=== PATIENT | male | born 1950 | race Caucasian/White ===

== ENCOUNTER → 2017-05-24 | Outpatient (CLI) | payer MEDICARE ==
[2017-05-24 11:43] LABS: ALT 40 U/L (21-72); AST 25 U/L (17-59); Alkaline Phosphatase 57 U/L (38-126); Anion Gap 12 mmol/L; Blood Urea Nitrogen 22 mg/dL (9-20); Calcium 9.7 mg/dL (8.4-10.2); Carbon Dioxide 24 mmol/L (22-30); Chloride 107 mmol/L (98-107); Glucose 103 mg/dL (74-99); Non-African American GFR(MDRD) >60 (>60 ml/min/1.73 sqM); Potassium 3.9 mmol/L (3.5-5.1); Sodium 143 mmol/L (137-145); Total Bilirubin 0.5 mg/dL (0.2-1.3); Total Protein 7.1 g/dL (6.3-8.2)
[2017-05-24 12:13] LABS: Prostate Specific Antigen 1.85 ng/mL (0.00-4.00)
[2017-05-24 14:17] LABS: Hemoglobin A1C 6.1 % (4.2-6.1)
== END | disposition home or self-care (01) ==
LOC: LABWHC1 11:09
PROVIDERS: ATTEND Family Medicine
DX: E11.22 Type 2 diabetes mellitus with diabetic chronic kidney disease (principal); N18.9 Chronic kidney disease, unspecified
CPT/HCPCS: 36415; 80053; 83036; 84153

== ENCOUNTER → 2017-09-05 | Outpatient (CLI) | payer MEDICARE ==
[2017-09-05 13:59] LABS: CH 31.4; CHCM 32.8; HCT 43.2 % (39.0-53.0); HDW 2.48; HGB 14.2 gm/dL (13.0-17.5); MCH 31.7 pg (25.0-35.0); MCHC 32.9 g/dL (31.0-37.0); MCV 96.4 fL (80.0-100.0); Mean Platelet Volume 7.3; RBC 4.48 m/uL (4.30-5.90); WBC 6.4 k/uL (3.8-10.6)
[2017-09-05 14:18] LABS: ALT 39 U/L (21-72); AST 25 U/L (17-59); Alkaline Phosphatase 64 U/L (38-126); Anion Gap 10 mmol/L; Blood Urea Nitrogen 21 mg/dL (9-20); Calcium 9.8 mg/dL (8.4-10.2); Carbon Dioxide 28 mmol/L (22-30); Chloride 101 mmol/L (98-107); Cholesterol 185 mg/dL (<200); Glucose 120 mg/dL (74-99); HDL Cholesterol 63 mg/dL (40-60); Non-African American GFR(MDRD) >60 (>60 ml/min/1.73 sqM); Potassium 4.1 mmol/L (3.5-5.1); Sodium 139 mmol/L (137-145); Total Bilirubin 0.6 mg/dL (0.2-1.3); Total Protein 7.5 g/dL (6.3-8.2); Uric Acid 8.9 mg/dL (3.5-8.5)
[2017-09-05 14:48] LABS: Prostate Specific Antigen 2.36 ng/mL (0.00-4.00)
[2017-09-05 16:17] LABS: Theophylline 6.3 ug/mL
== END ==
LOC: LABWHC1 13:42
PROVIDERS: ATTEND Family Medicine
DX: I10 Essential (primary) hypertension (principal); E11.9 Type 2 diabetes mellitus without complications; M10.9 Gout, unspecified; E78.00 Pure hypercholesterolemia, unspecified; N40.0 Benign prostatic hyperplasia without lower urinary tract symptoms; J45.909 Unspecified asthma, uncomplicated; R35.1 Nocturia; N18.9 Chronic kidney disease, unspecified
CPT/HCPCS: 36415; 80053; 80061; 80198; 83036; 84153; 84443; 84550; 85027

== ENCOUNTER 2017-12-04 09:54 | Emergency (ER) | payer MEDICARE, OTHER ==
[2017-12-04] MEDS ORDERED: ACETAMINOPHEN TAB 500 MG TAB PO STA (10:34)
[2017-12-04] MEDS ORDERED: SODIUM CHLORIDE 0.9% 1,000 ML IV STA (10:34)
[2017-12-04] MEDS ORDERED: IPRATROPIUM-ALBUTEROL 3 ML NEB INHALATION STA ×2 (10:35→12:03)
[2017-12-04] MEDS ORDERED: IBUPROFEN 600 MG TAB PO STA (10:35)
--- NOTE | 2017-12-04 10:38 | ED ---
General Adult HPI - General Chief complaint: Upper Respiratory Infection Stated complaint: Flu Time Seen by Provider: 12/04/17 10:26 Source: patient, RN notes reviewed Mode of arrival: ambulatory Limitations: no limitations - History of Present Illness Initial comments: Patient is a 67-year-old male who presents emergency room today with a chief complaint of cough congestion that started 5 days ago. Patient does admit that he's had some positive sputum production it's been green in color. Also received experiencing some body aches. Having fever and chills. This has not taken any Tylenol today. Last dose of Motrin was at 4:30 AM. Patient admits to right-sided ear pain over the last 2 days. He does admit some pressure over the sinuses. Patient admits to history of asthma using inhaler at home. He denies any other complaints at this time. Patient denies any recent shortness of breath, chest pain, back pain, abdominal pain, nausea or vomiting, numbness or tingling, dysuria or hematuria, constipation or diarrhea, visual changes, or any other complaints. - Related Data Home Medications Medication Instructions Recorded Confirmed Albuterol Sulfate [Proventil Hfa] 1 - 2 puff INHALATION RT-Q6H PRN 12/04/17 Allopurinol [Zyloprim] 100 mg PO DAILY 12/04/17 12/04/17 Amlodipine/Valsartan/Hcthiazid 1 tab PO DAILY 12/04/17 12/04/17 [Nrsnm-Ryicd-Ivic 5-160-25 mg] Aspirin EC [Ecotrin Low Dose] 81 mg PO DAILY 12/04/17 12/04/17 Aspirin/Sod Bicarb/Citric Acid 1 tab PO DAILY PRN 12/04/17 12/04/17 [[place] Original Tab Eff] Esomeprazole Magnesium [NexIUM] 40 mg PO DAILY 12/04/17 12/04/17 Fluticasone/Salmeterol [Advair 1 puff INHALATION RT-BID 12/04/17 12/04/17 250-50 Diskus] Ibuprofen [Motrin Ib] 400 mg PO Q6H 12/04/17 12/04/17 Indomethacin [Indocin ER] 75 mg PO DAILY PRN 12/04/17 12/04/17 Pioglitazone [Actos] 30 mg PO DAILY 12/04/17 12/04/17 Tamsulosin HCl [Flomax] 0.4 mg PO DAILY 12/04/17 12/04/17 Previous Rx's Medication Instructions Recorded Azithromycin [Zithromax Z-pack] 0 mg PO DIRECTED #6 tab 12/04/17 predniSONE 20 mg PO BID 5 Days tab 12/04/17 Allergies Allergy/AdvReac Type Severity Reaction Status Date / Time No Known Allergies Allergy Verified 12/04/17 10:43 Review of Systems ROS Statement: Those systems with pertinent positive or pertinent negative responses have been documented in the HPI. ROS Other: All systems not noted in ROS Statement are negative. Past Medical History Past Medical History: Asthma, Diabetes Mellitus, Hypertension Additional Past Medical History / Comment(s): gout History of Any Multi-Drug Resistant Organisms: None Reported Past Surgical History: Orthopedic Surgery Past Psychological History: No Psychological Hx Reported Smoking Status: Never smoker Past Alcohol Use History: Daily Past Drug Use History: None Reported General Exam - General Exam Comments Initial Comments: General: The patient is awake and alert, in no distress, and does not appear acutely ill. Eye: Pupils are equal, round and reactive to light, extra-ocular movements are intact. No nystagmus. There is normal conjunctiva bilaterally. No signs of icterus. Ears, nose, mouth and throat: There are moist mucous membranes and no oral lesions. TMs clear bilaterally. Does have tenderness over the right mastoid. Tender over the maxillary sinuses Neck: The neck is supple, there is no tenderness or JVD. Cardiovascular: There is a regular rate and rhythm. No murmur, rub or gallop is appreciated. Respiratory: Expiratory wheeze bilaterally. respirations are non-labored, breath sounds are equal. No stridor, rales, or rhonchi. Gastrointestinal: Soft, non-distended, non-tender abdomen without masses or organomegaly noted. There is no rebound or guarding present. No CVA tenderness. Bowel sounds are unremarkable. Musculoskeletal: Normal ROM, no tenderness. Strength 5/5. Sensation intact. Pulses equal bilaterally 2+. Neurological: A&O x 3. CN II-XII intact, There are no obvious motor or sensory deficits. Coordination appears grossly intact. Speech is normal. Skin: Skin is warm and dry and no rashes or lesions are noted. Psychiatric: Cooperative, appropriate mood & affect, normal judgment. Limitations: no limitations Course Vital Signs 12/04/17 12/04/17 12/04/17 10:08 11:06 11:21 Temperature 102 F H Pulse Rate 106 H 104 H 100 Respiratory 18 Rate Blood Pressure 156/86 O2 Sat by Pulse 95 Oximetry 12/04/17 12/04/17 12/04/17 12:02 12:22 12:33 Temperature 99.3 F Pulse Rate 106 H 92 96 Respiratory 20 Rate Blood Pressure 152/67 O2 Sat by Pulse 91 L Oximetry 12/04/17 12:47 Temperature 98.9 F Pulse Rate 99 Respiratory Rate Blood Pressure 135/62 O2 Sat by Pulse 93 L Oximetry Medical Decision Making - Medical Decision Making Patient reexamined at this time shows no signs of distress. Patient's pulse ox currently 96% on room air. Patient's chest x-rays negative for any sign of pneumonia. Patient's influenza test negative. His labs been reviewed are unremarkable. Does have history of asthma will be covered for a bronchitis place on azithromycin. Patient will be given prescription of steroids advised that it may affect his blood - Lab Data Result diagrams: 12/04/17 11:10 12/04/17 11:10 Lab Results 12/04/17 12/04/17 12/04/17 Range/Units 11:10 11:10 11:10 WBC 6.5 (3.8-10.6) k/uL RBC 4.55 (4.30-5.90) m/uL Hgb 14.4 (13.0-17.5) gm/dL Hct 43.3 (39.0-53.0) % MCV 95.1 (80.0-100.0) fL MCH 31.5 (25.0-35.0) pg MCHC 33.2 (31.0-37.0) g/dL RDW 14.6 (11.5-15.5) % Plt Count 220 (150-450) k/uL Neutrophils % 80 % Lymphocytes % 9 % Monocytes % 8 % Eosinophils % 1 % Basophils % 1 % Neutrophils # 5.2 (1.3-7.7) k/uL Lymphocytes # 0.6 L (1.0-4.8) k/uL Monocytes # 0.5 (0-1.0) k/uL Eosinophils # 0.0 (0-0.7) k/uL Basophils # 0.0 (0-0.2) k/uL Sodium 140 (137-145) mmol/L Potassium 4.3 (3.5-5.1) mmol/L Chloride 99 (98-107) mmol/L Carbon Dioxide 28 (22-30) mmol/L Anion Gap 13 mmol/L BUN 17 (9-20) mg/dL Creatinine 1.20 (0.66-1.25) mg/dL Est GFR (MDRD) Af Amer >60 (>60 ml/min/1.73 sqM) Est GFR (MDRD) Non-Af >60 (>60 ml/min/1.73 sqM) Glucose 138 H (74-99) mg/dL Plasma Lactic Acid Sulaiman (0.7-2.0) mmol/L Calcium 9.8 (8.4-10.2) mg/dL Total Bilirubin 0.6 (0.2-1.3) mg/dL AST 35 (17-59) U/L ALT 28 (21-72) U/L Alkaline Phosphatase 69 (38-126) U/L Total Protein 7.7 (6.3-8.2) g/dL Albumin 4.3 (3.5-5.0) g/dL Influenza Type A RNA Not Detected (Not Detectd) Influenza Type B (PCR) Not Detected (Not Detectd) 12/04/17 Range/Units 11:10 WBC (3.8-10.6) k/uL RBC (4.30-5.90) m/uL Hgb (13.0-17.5) gm/dL Hct (39.0-53.0) % MCV (80.0-100.0) fL MCH (25.0-35.0) pg MCHC (31.0-37.0) g/dL RDW (11.5-15.5) % Plt Count (150-450) k/uL Neutrophils % % Lymphocytes % % Monocytes % % Eosinophils % % Basophils % % Neutrophils # (1.3-7.7) k/uL Lymphocytes # (1.0-4.8) k/uL Monocytes # (0-1.0) k/uL Eosinophils # (0-0.7) k/uL Basophils # (0-0.2) k/uL Sodium (137-145) mmol/L Potassium (3.5-5.1) mmol/L Chloride (98-107) mmol/L Carbon Dioxide (22-30) mmol/L Anion Gap mmol/L BUN (9-20) mg/dL Creatinine (0.66-1.25) mg/dL Est GFR (MDRD) Af Amer (>60 ml/min/1.73 sqM) Est GFR (MDRD) Non-Af (>60 ml/min/1.73 sqM) Glucose (74-99) mg/dL Plasma Lactic Acid Sulaiman 1.2 (0.7-2.0) mmol/L Calcium (8.4-10.2) mg/dL Total Bilirubin (0.2-1.3) mg/dL AST (17-59) U/L ALT (21-72) U/L Alkaline Phosphatase (38-126) U/L Total Protein (6.3-8.2) g/dL Albumin (3.5-5.0) g/dL Influenza Type A RNA (Not Detectd) Influenza Type B (PCR) (Not Detectd) Disposition Clinical Impression: Acute bronchitis Disposition: HOME SELF-CARE Condition: Good Instructions: Acute Bronchitis (ED) Additional Instructions: Please use medication as discussed. Please follow-up with family doctor in the next 2 days of symptoms have not improved. Please return to emergency room if the symptoms increase or worsen or for any other concerns. Prescriptions: Azithromycin [Zithromax Z-pack] 0 mg PO DIRECTED #6 tab predniSONE 20 mg PO BID 5 Days tab Referrals: Zelalem Muniz MD [Primary Care Provider] - 1-2 days Time of Disposition: 13:15
[2017-12-04 11:40] LABS: ALT 28 U/L (21-72); AST 35 U/L (17-59); Albumin 4.3 g/dL (3.5-5.0); Alkaline Phosphatase 69 U/L (38-126); Anion Gap 13 mmol/L; Blood Urea Nitrogen 17 mg/dL (9-20); Calcium 9.8 mg/dL (8.4-10.2); Carbon Dioxide 28 mmol/L (22-30); Chloride 99 mmol/L (98-107); Glucose 138 mg/dL (74-99); Potassium 4.3 mmol/L (3.5-5.1); Sodium 140 mmol/L (137-145); Total Bilirubin 0.6 mg/dL (0.2-1.3); Total Protein 7.7 g/dL (6.3-8.2)
[2017-12-04 11:42] LABS: Basophils % (A) 1 %; Eosinophils % (A) 1 %; HCT 43.3 % (39.0-53.0); HGB 14.4 gm/dL (13.0-17.5); Lymphocytes # (A) 0.6 k/uL (1.0-4.8); Lymphocytes % (A) 9 %; MCH 31.5 pg (25.0-35.0); MCHC 33.2 g/dL (31.0-37.0); MCV 95.1 fL (80.0-100.0); Mean Platelet Volume 7.6; Monocytes # (A) 0.5 k/uL (0-1.0); Monocytes % (A) 8 %; Neutrophils # (A) 5.2 k/uL (1.3-7.7); Neutrophils % (A) 80 %; Platelet Count 220 k/uL (150-450); RBC 4.55 m/uL (4.30-5.90); RDW 14.6 % (11.5-15.5); WBC 6.5 k/uL (3.8-10.6)
--- NOTE | 2017-12-04 11:44 | CT ---
EXAMINATION TYPE: CT brain wo con DATE OF EXAM: 12/04/2017 COMPARISON: NONE HISTORY: Patient complains of dizziness and right ear pain. CT DLP: 835.5 mGycm Automated exposure control for dose reduction was used. FINDINGS: Central structures are midline. There is no evidence of hydrocephalus. No acute focal lesion, mass ef fect or midline shift is seen. I do not see evidence of intracranial blood. There is diffuse perivent ricular white matter lucency compatible with chronic white matter ischemic change. There is chronic mucoperiosteal thickening involving the ethmoid sinuses. The mastoids are clear. Mid dle ear structures are unremarkable. Inner ear structures are unremarkable. IMPRESSION: 1. NO ACUTE INTRACRANIAL ABNORMALITY. 2. CHRONIC ETHMOIDAL SINUS MUCOSAL DISEASE. 3. MILD, CHRONIC WHITE MATTER ISCHEMIC CHANGE.
--- NOTE | 2017-12-04 11:46 | XR ---
EXAMINATION TYPE: XR chest 2V DATE OF EXAM: 12/04/2017 HISTORY: cough. REFERENCE: NONE. FINDINGS: The lungs are clear. Pleural space are clear. Heart size upper limits of normal. IMPRESSION: NO ACUTE INTRATHORACIC ABNORMALITY.
[2017-12-04 12:03] VITALS: RESP 20
[2017-12-04 13:49] VITALS: BP 131/58; PULSE 92; TEMP 98.7
== END 2017-12-04 13:49 | disposition home or self-care (01) ==
LOC: EC 09:54
DX: J20.9 Acute bronchitis, unspecified (principal); J45.909 Unspecified asthma, uncomplicated; E11.9 Type 2 diabetes mellitus without complications; I10 Essential (primary) hypertension; M10.9 Gout, unspecified; Z79.51 Long term (current) use of inhaled steroids; Z79.1 Long term (current) use of non-steroidal anti-inflammatories (NSAID); Z79.84 Long term (current) use of oral hypoglycemic drugs; Z79.899 Other long term (current) drug therapy
CPT/HCPCS: 36415; 70450; 71046; 80053; 83605; 85025; 87040; 87502; 94640; 96360; 99284

== ENCOUNTER → 2018-02-07 | Day surgery (SDC) | payer MEDICARE, OTHER ==
[2018-02-02 12:23] VITALS: BMI 36.8
[~2018-02-07] MED LIST: LIDOCAINE 1% 20 ML VIAL (10MG/ML) FOR IV START INTRADERMA ONE; LIDOCAINE 1% INJ 10MG/ML (20 ML MDV) ONE; PROPOFOL 10 MG/ML 20 ML VIAL IV ONE
[2018-02-07] MEDS: LACTATED RINGERS 1,000 ML IV SCH ×2 (08:50→09:14)
[2018-02-07 08:55] VITALS: TEMP 97.8
[2018-02-07 08:57] LABS: Glucose,Whole Blood 142 mg/dL (75-99)
--- NOTE | 2018-02-07 10:00 | P.PCN ---
Date of Procedure: 02/07/18 Procedure(s) Performed: Procedure: 1. Esophagogastroduodenoscopy and biopsy. 2. Total colonoscopy. Preoperative diagnosis: History of Lee's esophagus, change in bowel habits and history of polyps. Postoperative diagnosis: 1. Small hiatal hernia and short Lee's esophagus. 2. Mild antral gastritis. 3. Sigmoid diverticulosis. Preparation: HalfLytely prep. Sedation: Was provided by anesthesia. Brief clinical history: The patient is a 67-year-old male who has history of polyps. His last colonoscopy was close to 10 years ago. There is also history of Lee's esophagus and prior history of esophageal dilations. His last EGD was 8-10 years ago as well. The patient has been experiencing change in bowel with softer more often stools, ribbon-like and abdominal bloating. He is referred for this evaluation to rule out neoplasia or other pathology. Procedure: With the patient on his left lateral decubitus position and after informed consent and adequate sedation, I passed the Olympus-GIF 160 video upper endoscope through the cricopharyngeus down the esophagus. GE junction was irregular and it started around 39 cm from the incisors and there was a short segment of Lee's esophagus and a small sliding hiatal hernia but no obvious esophagitis or strictures. The endoscope was then passed into the stomach which was insufflated with air and inspected in detail including the retroflex view in the cardia. There was some mottling and erythema in the antrum but no ulcers or erosions. Pyloric channel, duodenal bulb, post bulbar area and descending duodenum appeared within normal limits. Because of his symptoms, I obtained biopsies from the duodenum, antrum, esophagus including, separately, the segment of Lee's esophagus. I then proceeded with the colonoscopy. Perianal area did not show any fissures or fistulas. There were no masses felt on digital rectal examination. The Olympus CFQ 160L video colonoscope was then inserted in the rectum in the usual fashion and advanced to the cecum. There were a few diverticular orifices seen scattered in the sigmoid but I saw no evidence of acute diverticulitis or strictures. No polyps or tumors were seen or any other pathology. I retroflexed the endoscope in the rectum before the endoscope was withdrawn. The patient tolerated the procedure well. Plan: The patient was reassured. Discussed dietary measures. Will await biopsy results. I anticipate repeating his upper endoscopy in 2-3 years and his colonoscopy in 5 years. He will follow up with you as planned.
[2018-02-07 10:12] VITALS: BP 126/62; PULSE 73; RESP 18
== END ==
LOC: ORWHC2ENDO 08:09
DX: K29.50 Unspecified chronic gastritis without bleeding (principal); K21.0 Gastro-esophageal reflux disease with esophagitis; K22.70 Barrett's esophagus without dysplasia; K44.9 Diaphragmatic hernia without obstruction or gangrene; K57.30 Diverticulosis of large intestine without perforation or abscess without bleeding; Z86.010 Personal history of colon polyps; E11.9 Type 2 diabetes mellitus without complications; I10 Essential (primary) hypertension; M10.9 Gout, unspecified; N40.0 Benign prostatic hyperplasia without lower urinary tract symptoms; J45.909 Unspecified asthma, uncomplicated; F17.200 Nicotine dependence, unspecified, uncomplicated; Z79.899 Other long term (current) drug therapy
CPT/HCPCS: 88305; 45378; 43239; J2001; J2704

== ENCOUNTER → 2018-02-21 | Outpatient (CLI) | payer MEDICARE, OTHER ==
[2018-02-21 12:49] LABS: HCT 41.9 % (39.0-53.0); HGB 13.9 gm/dL (13.0-17.5); MCH 31.1 pg (25.0-35.0); MCHC 33.3 g/dL (31.0-37.0); MCV 93.4 fL (80.0-100.0); Mean Platelet Volume 7.1; Platelet Count 276 k/uL (150-450); RBC 4.49 m/uL (4.30-5.90); RDW 13.6 % (11.5-15.5); WBC 5.1 k/uL (3.8-10.6)
[2018-02-21 13:05] LABS: Albumin 4.2 g/dL (3.5-5.0); Calcium 9.6 mg/dL (8.4-10.2); Potassium 4.2 mmol/L (3.5-5.1); Total Bilirubin 0.5 mg/dL (0.2-1.3); Total Protein 7.3 g/dL (6.3-8.2)
[2018-02-21 13:34] LABS: Prostate Specific Antigen 1.94 ng/mL (0.00-4.00)
[2018-02-21 22:53] LABS: Hemoglobin A1C 6.8 % (4.0-6.0)
== END | disposition home or self-care (01) ==
LOC: LABWHC1 12:19
PROVIDERS: ATTEND Family Medicine
DX: I10 Essential (primary) hypertension (principal); E11.9 Type 2 diabetes mellitus without complications; R35.1 Nocturia; E78.00 Pure hypercholesterolemia, unspecified; E66.9 Obesity, unspecified
CPT/HCPCS: 36415; 80053; 80061; 82550; 83036; 84153; 84443; 85027

== ENCOUNTER → 2019-03-16 | Outpatient (CLI) | payer MEDICARE, OTHER ==
--- NOTE | 2019-03-16 15:32 | US ---
EXAMINATION TYPE: US scrotum with doppler. Grayscale and color Doppler Duplex imaging performed of ger mcdaniels scrotum. DATE OF EXAM: 03/16/2019 COMPARISON: NONE CLINICAL HISTORY: I86.1 Scrotal varices. Patient states having right side pain. No injury. Vasectom y x 40 years ago. Slight swelling. EXAM MEASUREMENTS: TESTICLES: Right Testicle: 3.3 x 2.5 x 2.4 cm Left Testicle: 3.3 x 3.7 x 2.5 cm EPIDIDYMIS HEAD: Right Epididymis: 1.0 x 1.1 x 0.7 cm Left Epididymis: 1.0 x 0.7 x 1.1 cm Doppler performed to assess for testicular vascularity; good bilateral color flow and waveforms are s een. There is no evidence of testicular torsion. Presence of hydroceles: small right Presence of varicoceles: no Bilateral heterogeneous testes. IMPRESSION: 1. Small right-sided hydrocele. Otherwise unremarkable study.
== END | disposition home or self-care (01) ==
LOC: RADUSWWP 14:52
PROVIDERS: ATTEND Family Medicine
DX: N43.3 Hydrocele, unspecified (principal)
CPT/HCPCS: 76870; 93975

== ENCOUNTER → 2019-10-23 | Outpatient (CLI) | payer MEDICARE, OTHER ==
--- NOTE | 2019-10-23 11:02 | US ---
EXAMINATION TYPE: US scrotum with doppler. Grayscale and color Doppler Duplex imaging performed of ger mcdaniels scrotum. DATE OF EXAM: 10/23/2019 COMPARISON: NONE CLINICAL HISTORY: N49.2; N50.819 Mass; Hernia. Large palpable on the left has gone down in size since last week but when was larger it was very painful. Patient states he has small palpable on the right , had this before and is was hydrocele. EXAM MEASUREMENTS: TESTICLES: Right Testicle: 4.0 x 2.3 x 2.3 cm Left Testicle: 3.1 x 2.5 x 1.7 cm, hypoechoic area noted posterior portion of left testicle EPIDIDYMIS HEAD: Right Epididymis: 1.4 cm Left Epididymis: 1.3 cm, epi cyst seen 1.5cm. This is a benign finding. Doppler performed to assess for testicular vascularity; good bilateral color flow and waveforms are s een. There is no evidence of testicular torsion. Presence of hydroceles: Small bilaterally Presence of varicoceles: None Linear area of hypoechogenicity seen laterosuperior to left testicle at site of palpable that may rep resent a hernia, no movement was seen during the valsalva maneuver, patient states this area was much large last week and caused severe pain. No pain at time of exam. Pain extended to LLQ and soft tissue scan was negative of findings. IMPRESSION: 1. Superior lateral to the left testicle there is a linear area of hypoechogenicity, questionably sma ll bowel within the hernia however no definitive peristalsis was seen nor increase in size with Valsa lva. CT pelvis is recommended for further evaluation. 2. Small bilateral hydroceles.
== END | disposition home or self-care (01) ==
LOC: RADUSWWP 09:18
PROVIDERS: ATTEND Family Medicine
DX: N43.3 Hydrocele, unspecified (principal)
CPT/HCPCS: 76870; 93975

== ENCOUNTER → 2019-11-05 | Outpatient (CLI) | payer MEDICARE, OTHER ==
--- NOTE | 2019-11-05 23:29 | CT ---
EXAMINATION TYPE: CT pelvis w con DATE OF EXAM: 11/05/2019 COMPARISON: Scrotal ultrasound October 23, 2019 HISTORY: Abnormal US. CT DLP: 1595 mGycm Automated exposure control for dose reduction was used. CONTRAST: Performed with oral and with IV Contrast, patient injected with 100 mL of Isovue 300. FINDINGS: There is confirmation of moderate to large size left inguinal hernia containing fat and tiny mesenter ic vessels likely accounting for scrotal ultrasound abnormality. No protruding bowel noted. Prostate is upper limits of normal in size. No suspicious bowel dilatation. Slight prominence of retr operitoneal fat. No pelvic fluid collection or adenopathy. Occasional diverticula in the sigmoid colo n without acute diverticulitis. Facet arthropathy in the lower lumbar spine. Some spurring at level of sacroiliac joints. Moderate na rrowing of both hip joints. IMPRESSION: Confirmation of moderate to large size fat-containing left inguinal hernia.
== END ==
LOC: RADCTMAIN 14:58
PROVIDERS: ATTEND Family Medicine
DX: K40.90 Unilateral inguinal hernia, without obstruction or gangrene, not specified as recurrent (principal)
CPT/HCPCS: 82565; 84520; 72193; 36415; Q9967 ×2

== ENCOUNTER 2019-12-18 09:43 | Day surgery (SDC) | payer MEDICARE, OTHER ==
[2019-12-17 09:10] VITALS: BMI 38.7
[~2019-12-18 09:43] MED LIST changes: +DEXAMETHASONE SOD PHOSPHATE 10 MG/ML 1 ML VIAL IV ONE; +LACTATED RINGERS 1,000 ML IV SCH; -LIDOCAINE 1% 20 ML VIAL (10MG/ML) FOR IV START INTRADERMA ONE; +LIDOCAINE 1% 20 ML VIAL (10MG/ML) FOR IV START INTRADERMA PRN; -LIDOCAINE 1% INJ 10MG/ML (20 ML MDV) ONE; +ONDANSETRON 4 MG/2 ML VIAL IVP ONE; -PROPOFOL 10 MG/ML 20 ML VIAL IV ONE; +Pre Op ABX Message 1 EACH MISC MISCELLANE ONE; +SCOPOLAMINE 1.5MG/72HR PATCH TRANSDERM ONE
[2019-12-18 10:39] LABS: Glucose,Whole Blood 117 mg/dL (75-99)
[2019-12-18] MEDS ORDERED: fentaNYL (PF) 50 MCG/ML 2 ML AMP IV ONE ×2 (11:11→11:30)
[2019-12-18] MEDS ORDERED: MIDAZOLAM 2 MG/2 ML VIAL IV ONE ×2 (11:11→11:30)
[2019-12-18] MEDS ORDERED: NEOSTIGMINE 1 MG/ML 10 ML VIAL ONE (11:27)
[2019-12-18] MEDS ORDERED: DEXAMETHASONE SOD PHOSPHATE 4 MG/ML 1 ML VIAL ONE (11:27)
[2019-12-18] MEDS ORDERED: PROPOFOL 10 MG/ML 20 ML VIAL IV ONE (11:27)
[2019-12-18] MEDS ORDERED: ROCURONIUM BROMIDE 10 MG/ML 5 ML VIAL IV ONE (11:27)
[2019-12-18] MEDS ORDERED: GLYCOPYRROLATE 0.2 MG/ML 2 ML VIAL ONE (11:27)
[2019-12-18] MEDS ORDERED: ROPIVACAINE 5 MG/ML 30 ML VIAL ONE (11:27)
[2019-12-18] MEDS ORDERED: fentaNYL (PF) 50 MCG/ML 2 ML AMP ONE (11:27)
[2019-12-18] MEDS ORDERED: LIDOCAINE 1% INJ 10MG/ML (20 ML MDV) ONE (11:27)
[2019-12-18] MEDS ORDERED: LIDOCAINE 1%-EPI 1:100,000 20 ML VIAL SQ ONE ×2 (11:56→12:55)
[2019-12-18] MEDS ORDERED: BUPIVACAINE (PF) 0.5% 30 ML VIAL SQ ONE ×2 (11:56→12:56)
--- NOTE | 2019-12-18 13:02 | P.ANPRN ---
Procedure Note - Anesthesia - Nerve Block Performed Bilateral Transversus Abdominis Single Time Out Performed: Yes Date of Procedure: 12/18/19 Procedure Start Time: Procedure Stop Time: Location of Patient: PreOp Indication: Acute Post-Operative Pain, Requested by Surgeon Sedation Type: Sedate with meaningful contact maintained Preparation: Sterile Prep Position: Supine Catheter: None Needle Types: Pajunk Needle Gauge: 21 Ultrasound used to visualize needle placement: Yes Ultrasound used to observe medication spread: Yes Injectate: 0.5% Ropivacaine (see comment for volume) (ROPIVACAINE 0.5% 20 CC + DECADRON 4MG-- PER SIDE) Blood Aspirated: No Pain Paresthesia on Injection Noted: No Resistance on Injection: Normal Image Stored and Saved: Yes Events: Uneventful and Well Tolerated
--- NOTE | 2019-12-18 13:07 | P.OP ---
Date of Procedure: 12/18/19 Preoperative Diagnosis: Left inguinal hernia, possible right inguinal hernia Postoperative Diagnosis: bilateral inguinal hernia Procedure(s) Performed: Attempted robotic inguinal herniorrhaphy, converted to open Anesthesia: GRAEME Surgeon: Gail Mtz Estimated Blood Loss (ml): 10 Pathology: none sent Condition: stable Disposition: PACU Indications for Procedure: Patient presented with a large symptomatic left inguinal hernia. There was a possibility of a smaller right inguinal hernia Description of Procedure: The patient's taken the operative suite where he is prepped and draped in the usual sterile manner under general endotracheal anesthetic. A supraumbilical incision was made. There is a very small umbilical fascial defect which was dissected free. The peritoneum was then incised and a balloon trocar was placed. The fascial defect was 10 mm or less. Pneumoperitoneum was established with CO2 gas. An accessory trocar was placed in the right abdomen. Even with the patient in fairly steep Trendelenburg, it was difficult to fully evaluate the groin. The sigmoid colon was adhered on the left side and multiple loops of small bowel were adhered on the right. Therefore decision was made to do an open hernia repair. The instruments were removed. The pneumoperitoneum was released. The fascia at the umbilicus was closed with 0 Vicryl. The ASIS and pubic tubercle were then identified on either side. [place] between those 2 points a 4 cm incision was made. The subcutaneous tissues were divided. The external oblique is opened along the direction of its fibers. The internal oblique is bluntly opened along the direction of its fibers and the transversalis fascia was opened vertically. Starting on the right side, there was a large indirect hernia sac was dissected free from the cord and cord structures to the bifurcation. The preperitoneal space was then bluntly developed. There was a small direct hernia defect in addition to the indirect hernia. 11 x 14 cm mesh was chosen. It was placed in the preperitoneal area and deployed. It gave good coverage of all potential defects. It was tacked to the fascia medially using a spiral tacker. The procedure was completed in a similar manner on the right side. There is a small indirect hernia defect with a larger direct hernia defect. The skin incisions were closed with 4-0 Vicryl in a subcuticular manner. Steri-Strips and dressings were applied. He tolerated the procedure without difficulty and was taken recovery room in satisfactory condition. According to or personnel, all counts are correct. Plan - Discharge Summary Discharge Rx Participant: No New Discharge Prescriptions: New HYDROcodone/APAP 5-325MG [[place] 5-325] 1 - 2 tab PO Q4H PRN #30 tab PRN Reason: Pain No Action Aspirin EC [Ecotrin Low Dose] 81 mg PO DAILY Pioglitazone [Actos] 45 mg PO DAILY Esomeprazole Magnesium [NexIUM] 40 mg PO DAILY Tamsulosin HCl [Flomax] 0.4 mg PO DAILY Allopurinol [Zyloprim] 100 mg PO DAILY Albuterol Sulfate [Proventil Hfa] 1 - 2 puff INHALATION RT-Q6H PRN PRN Reason: Shortness Of Breath prednisoLONE ACETATE 1% OPHTH [Pred Forte 1%] 1 drops LEFT EYE TID Ketorolac 0.5% Ophth Soln [Acular] 1 drops LEFT EYE TID amLODIPine [Norvasc] 5 mg PO DAILY Hydrochlorothiazide [Hydrodiuril] 25 mg PO DAILY Fluticasone/Salmeterol [Advair 250-50 Diskus] 1 inhalation PO BID Etodolac [Lodine] 400 mg PO DAILY Discharge Medication List Albuterol Sulfate [Proventil Hfa] 1 - 2 puff INHALATION RT-Q6H PRN 12/04/17 [History] Allopurinol [Zyloprim] 100 mg PO DAILY 12/04/17 [History] Aspirin EC [Ecotrin Low Dose] 81 mg PO DAILY 12/04/17 [History] Esomeprazole Magnesium [NexIUM] 40 mg PO DAILY 12/04/17 [History] Pioglitazone [Actos] 45 mg PO DAILY 12/04/17 [History] Tamsulosin HCl [Flomax] 0.4 mg PO DAILY 12/04/17 [History] Etodolac [Lodine] 400 mg PO DAILY 12/17/19 [History] Fluticasone/Salmeterol [Advair 250-50 Diskus] 1 inhalation PO BID 12/17/19 [History] Hydrochlorothiazide [Hydrodiuril] 25 mg PO DAILY 12/17/19 [History] Ketorolac 0.5% Ophth Soln [Acular] 1 drops LEFT EYE TID 12/17/19 [History] amLODIPine [Norvasc] 5 mg PO DAILY 12/17/19 [History] prednisoLONE ACETATE 1% OPHTH [Pred Forte 1%] 1 drops LEFT EYE TID 12/17/19 [History] HYDROcodone/APAP 5-325MG [[place] 5-325] 1 - 2 tab PO Q4H PRN #30 tab 12/18/19 [Rx] Follow up Appointment(s)/Referral(s): Gail Mtz DO [Doctor of Osteopathic Medicine] - 2 Weeks Activity/Diet/Wound Care/Special Instructions: Ice to the incision and scrotum for 24-48 hours. Wear well supporting underwear. Dressings may be removed then you may shower. No tub baths. Expect some bruising. No lifting greater than 10 pounds. Call if questions or concerns. No driving for 1-2 weeks Discharge Disposition: HOME SELF-CARE
[2019-12-18 13:19] VITALS: TEMP 97.2
[2019-12-18] MEDS: HYDROmorphone 0.5 MG/0.5 ML SYRINGE IVP PRN ×4 (13:46→14:02)
[2019-12-18 14:31] VITALS: RESP 17
[2019-12-18 14:40] VITALS: BP 157/80; PULSE 100
[2019-12-18] MEDS ORDERED: HYDROcodone/APAP 5-325MG 1 EACH TAB PO ONE (14:40)
[2019-12-18] MEDS ORDERED: HYDROcodone/APAP 5-325MG 1 EACH TAB PO PRN ×2 (14:47)
[2019-12-18] MEDS ORDERED: NALOXONE 0.4 MG/ML 1 ML VIAL IV PRN (14:47)
== END 2019-12-18 15:30 | disposition home or self-care (01) ==
LOC: OR 09:43
PROVIDERS: ATTEND Surgery
DX: K40.20 Bilateral inguinal hernia, without obstruction or gangrene, not specified as recurrent (principal); Z53.31 Laparoscopic surgical procedure converted to open procedure; I10 Essential (primary) hypertension; E11.9 Type 2 diabetes mellitus without complications; J45.909 Unspecified asthma, uncomplicated; K21.9 Gastro-esophageal reflux disease without esophagitis; M10.9 Gout, unspecified; Z79.82 Long term (current) use of aspirin; Z79.899 Other long term (current) drug therapy; Z79.84 Long term (current) use of oral hypoglycemic drugs; Z98.890 Other specified postprocedural states; Z82.5 Family history of asthma and other chronic lower respiratory diseases
CPT/HCPCS: 64488; 49505; C1781; J2250; J1100 ×2; J2710; J2405; J2001; J3010; J2795; J2704; J1170

== ENCOUNTER → 2020-08-29 | Outpatient (CLI) | payer MEDICARE, OTHER ==
--- NOTE | 2020-08-29 11:45 | XR ---
EXAMINATION TYPE: XR abdomen 1V DATE OF EXAM: 08/29/2020 Comparison: None Clinical History: 70-year-old male N20.0 calculus of kidney Findings: Mild to moderate stool throughout the colon. Some coils from mesh repair projecting at the pelvis. Mo derate degenerative change left hip and mild at the right hip. Nonobstructive bowel gas pattern. No d efinite suspicious calcifications are identified radiographically. Impression: No definite suspicious calcifications identified radiographically.
== END | disposition home or self-care (01) ==
LOC: RADXRMAIN 10:38
PROVIDERS: ATTEND Urology
DX: N20.0 Calculus of kidney (principal)
CPT/HCPCS: 74018

== ENCOUNTER → 2020-09-12 | Outpatient (CLI) | payer MEDICARE, OTHER ==
--- NOTE | 2020-09-14 23:44 | CT ---
EXAMINATION TYPE: CT abdomen pelvis wo con DATE OF EXAM: 09/12/2020 COMPARISON: Ultrasound / HISTORY: left flank pain CT DLP: 1407 mGycm Automated exposure control for dose reduction was used. TECHNIQUE: Helical acquisition of images was performed from the lung bases through the pelvis. CONTRAST: Performed without Oral Contrast and without intravenous contrast. FINDINGS: LUNG BASES: 2 and 3 mm pulmonary nodules of the left lower lobe (4:8). LIVER: Fatty liver. BILIARY SYSTEM: Cholelithiasis. No intrahepatic or extrahepatic biliary ductal dilatation. PANCREAS: Fatty atrophy. SPLEEN: Not enlarged. ADRENALS: Normal. KIDNEYS: No hydronephrosis or urolithiasis. BOWEL: No obstruction or thickening. PERITONEUM: No pneumoperitoneum. No free fluid. Within the left retroperitoneum inferior to the left kidney and within the left lower quadrant, there is a focal fatty lesion measuring up to at least 9. 5 x 5.3 x 8.9 cm (3:100, 5:62) which demonstrates displacement and mass effect on the left ureter wit hout ureteral obstruction, and has questionable soft tissue stranding from the left kidney versus see n adjacent to (5:63, 5:67). Hounsfield units -92. LYMPH NODES: No lymphadenopathy. PELVIS: Underdistended urinary bladder VASCULATURE: No abdominal aortic aneurysm. MUSCULOSKELETAL: Degenerative changes of the spine. IMPRESSION: 1. 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 Differential includes retroperitoneal lipoma, renal angiomy olipoma, and somewhat less likely retroperitoneal liposarcoma. Recommend MRI exam for further charact erization. 2. Cholelithiasis. 3. Fatty liver.
== END | disposition home or self-care (01) ==
LOC: RADCTMAIN 09:08
PROVIDERS: ATTEND Urology
DX: K76.0 Fatty (change of) liver, not elsewhere classified (principal); K80.20 Calculus of gallbladder without cholecystitis without obstruction; K68.9 Other disorders of retroperitoneum
CPT/HCPCS: 74176

== ENCOUNTER → 2021-03-25 | Outpatient (CLI) | payer MEDICARE, OTHER ==
[2021-03-25 14:20] LABS: Basophils # (A) 0.1 k/uL (0-0.2); Basophils % (A) 1 %; Eosinophils # (A) 0.1 k/uL (0-0.7); Eosinophils % (A) 2 %; HCT 45.5 % (39.0-53.0); HGB 15.7 gm/dL (13.0-17.5); Lymphocytes # (A) 1.3 k/uL (1.0-4.8); Lymphocytes % (A) 26 %; MCH 31.7 pg (25.0-35.0); MCHC 34.5 g/dL (31.0-37.0); MCV 91.9 fL (80.0-100.0); Mean Platelet Volume 7.1; Monocytes # (A) 0.4 k/uL (0-1.0); Monocytes % (A) 8 %; Neutrophils # (A) 3.1 k/uL (1.3-7.7); Neutrophils % (A) 62 %; Platelet Count 278 k/uL (150-450); RBC 4.95 m/uL (4.30-5.90); RDW 12.9 % (11.5-15.5)
[2021-03-25 14:25] LABS: Albumin 4.3 g/dL (3.5-5.0); Calcium 9.2 mg/dL (8.4-10.2); Potassium 4.3 mmol/L (3.5-5.1); Total Bilirubin 0.7 mg/dL (0.2-1.3)
[2021-03-25 14:33] LABS: Appearance,Urine Clear (Clear); Bilirubin,Urine 2+ (Negative); Blood,Urine Negative (Negative); Color,Urine Yellow; Glucose,Urine (UA) 4+ (Negative); Ketones,Urine Negative (Negative); Leukocyte Esterase,Urine Negative (Negative); Nitrite,Urine Negative (Negative); PH, Urine 5.5 (5.0-8.0); Protein,Urine Negative (Negative); Specific Gravity,Urine 1.019 (1.001-1.035); Urobilinogen,Urine <2.0 mg/dL (<2.0)
== END | disposition home or self-care (01) ==
LOC: LABPAT 13:20
PROVIDERS: ATTEND Urology
DX: Z01.812 Encounter for preprocedural laboratory examination (principal); N40.1 Benign prostatic hyperplasia with lower urinary tract symptoms; E11.9 Type 2 diabetes mellitus without complications; R35.0 Frequency of micturition
CPT/HCPCS: 36415; 80053; 81003; 85025; 87086

== ENCOUNTER → 2021-03-31 | Outpatient (CLI) | payer MEDICARE, OTHER | END | disposition home or self-care (01) | LOC: LABPAT 12:19 | PROVIDERS: ATTEND Urology | DX: Z01.818 Encounter for other preprocedural examination (principal); I10 Essential (primary) hypertension; R94.31 Abnormal electrocardiogram [ECG] [EKG] | CPT/HCPCS: 93005 ==

== ENCOUNTER 2021-04-01 09:21 | Day surgery (SDC) | payer MEDICARE, OTHER ==
[2021-03-30 14:14] VITALS: BMI 38.7
--- NOTE | 2021-03-31 18:47 | P.GSHP ---
History of Present Illness H&P Date: 03/31/21 70 yo male with symptomatic bph on maximum medical management. He has trilobe obstruction. We discussed further treatment options, goals and benefits. he comes for a bipolar turp The risks and complications have adán discussed including infection bleeding , incontinence ,impotence, lask of satisfaction. He comes for this procedure. - Constitutional Constitutional: Denies chills, Denies fever - EENT Eyes: denies blurred vision, denies pain Ears, nose, mouth and throat: Denies headache, Denies sore throat - Cardiovascular Cardiovascular: Denies chest pain, Denies shortness of breath - Respiratory Respiratory: Denies cough, Denies 7 - Gastrointestinal Gastrointestinal: Denies abdominal pain, Denies diarrhea, Denies nausea, Denies vomiting - Genitourinary (Female) Genitourinary: Denies dysuria, Denies hematuria - Genitourinary (Male) Genitourinary: Denies dysuria, Denies hematuria - Musculoskeletal Musculoskeletal: Denies myalgias - Integumentary Integumentary: Denies pruritus, Denies rash - Neurological Neurological: Denies numbness, Denies weakness - Psychiatric Psychiatric: Denies anxiety, Denies depression - Endocrine Endocrine: Denies fatigue, Denies weight change Past Medical History Past Medical History: Asthma, Diabetes Mellitus, GERD/Reflux, Hypertension, Prostate Disorder Additional Past Medical History / Comment(s): GOUT, BACK PAIN History of Any Multi-Drug Resistant Organisms: None Reported Past Surgical History: Heart Catheterization, Hernia Repair, Orthopedic Surgery Additional Past Surgical History / Comment(s): RT ROTATOR CUFF REPAIR. LT KNEE SCOPE X 2. RT ELBOW SX. BILAT CATARACT SX. LT RETINAL REPAIR-multiple surgeries to repair Past Anesthesia/Blood Transfusion Reactions: No Reported Reaction Smoking Status: Never smoker - Past Family History Mother Family Medical History: Diabetes Mellitus Father Family Medical History: Cancer Medications and Allergies Home Medications Medication Instructions Recorded Confirmed Type Aspirin EC [Ecotrin Low Dose] 81 mg PO DAILY 12/04/17 03/30/21 History Esomeprazole Magnesium [NexIUM] 40 mg PO DAILY 12/04/17 03/30/21 History Pioglitazone [Actos] 45 mg PO DAILY 12/04/17 03/30/21 History Tamsulosin HCl [Flomax] 0.4 mg PO BID 12/04/17 03/30/21 History allopurinoL [Zyloprim] 100 mg PO BID 12/04/17 03/30/21 History Etodolac [Lodine] 400 mg PO DAILY 12/17/19 03/30/21 History Fluticasone/Salmeterol [Advair 1 inhalation PO BID 12/17/19 03/30/21 History 250-50 Diskus] Ketorolac 0.5% Ophth Soln [Acular] 1 drops LEFT EYE TID 12/17/19 03/30/21 History amLODIPine [Norvasc] 20 mg PO DAILY 12/17/19 03/30/21 History hydroCHLOROthiazide [Hydrodiuril] 25 mg PO DAILY 12/17/19 03/30/21 History prednisoLONE ACETATE 1% OPHTH 1 drops LEFT EYE TID 12/17/19 03/30/21 History [Pred Forte 1%] Canagliflozin/Metformin HCl 1 each PO BID 03/30/21 03/30/21 History [Invokamet 150-500 mg Tablet] Cyclobenzaprine [Flexeril] 10 mg PO DAILY 03/30/21 03/30/21 History Loratadine [Claritin] 10 mg PO HS 03/30/21 03/30/21 History Rosuvastatin [Crestor] 10 mg PO DAILY 03/30/21 03/30/21 History Allergies Allergy/AdvReac Type Severity Reaction Status Date / Time No Known Allergies Allergy Verified 03/30/21 14:03 Surgical - Exam - General well developed, no distress - Eyes normal ocular movement - ENT no hearing loss - Neck no masses - Respiratory normal expansion, normal respiratory effort - Cardiovascular Rhythm: regular - Abdomen Abdomen: soft, non tender - Genitourinary prostate enlarged but benign normal penis with no external lesions - Rectum Rectum: normal sphincter tone - Integumentary no rash, no growths - Neurologic normal coordination, normal sensation - Musculoskeletal normal gait, normal posture - Psychiatric oriented to time, oriented to person, oriented to place, speech is normal, memory intact Assessment and Plan Assessment: Impression; with obstuction, DM asthma, htn Plan: Bipolar turp
[~2021-04-01 09:21] MED LIST changes: -DEXAMETHASONE SOD PHOSPHATE 10 MG/ML 1 ML VIAL IV ONE; +LIDOCAINE 1% (10MG/ML) FOR IV START INTRADERMA PRN; -LIDOCAINE 1% 20 ML VIAL (10MG/ML) FOR IV START INTRADERMA PRN; -ONDANSETRON 4 MG/2 ML VIAL IVP ONE; +ONDANSETRON 4 MG/2 ML VIAL IVP PRN; -Pre Op ABX Message 1 EACH MISC MISCELLANE ONE; -SCOPOLAMINE 1.5MG/72HR PATCH TRANSDERM ONE
[2021-04-01 10:18] LABS: Glucose,Whole Blood 164 mg/dL (75-99)
[2021-04-01] MEDS ORDERED: MIDAZOLAM 2 MG/2 ML VIAL ONE (11:53)
[2021-04-01] MEDS ORDERED: fentaNYL (PF) 50 MCG/ML 2 ML AMP ONE (11:53)
[2021-04-01] MEDS ORDERED: PROPOFOL 10 MG/ML 20 ML VIAL IV ONE (11:53)
[2021-04-01] MEDS ORDERED: LIDOCAINE 1% INJ 10MG/ML (20 ML MDV) ONE (11:53)
[2021-04-01] MEDS ORDERED: SUCCINYLCHOLINE CHLORIDE 100 MG/5 ML SYR IV ONE (11:53)
--- NOTE | 2021-04-01 13:12 | P.OP ---
Date of Procedure: 04/01/21 Preoperative Diagnosis: BpH with obstruction Postoperative Diagnosis: Same Procedure(s) Performed: Cystoscopy with bipolar TURP Anesthesia: GRAEME Surgeon: Zelalem Chery Estimated Blood Loss (ml): 50 Pathology: other (Prostate) Condition: stable Disposition: PACU Indications for Procedure: The patient is 70. He is symptomatic BPH and maximum medical management. He come for a bipolar TURP risk of locations alternatives been outlined Description of Procedure: The patient is brought to the operating suite. He is given a general endotracheal anesthesia. He's placed lithotomy position with a sterile prep and drape. The urethral meatus is dilated with Cheryl sounds [id number]. Under direct vision the 25-[place] sheath resectoscope, direct vision obturator and Foroblique lenses introduced into the bladder. The anterior urethra is normal. The prostatic urethra shows trilobar obstruction. The bladder luna heavily trabeculated. With the bipolar super sect loop I first resect the middle lobe. I moved to "12:00 and resect the left lateral lobe from bladder neck to verumontanum from 12:00 to 6:00. I do the same on the right side. I then resect the redundant floor tissue. Bleeding was controlled electrocautery. The bladder free to prostatic chips with the Jason evacuator. I reinspected the prostatic fossa and there is no active bleeding. 18-[place] coud-tip catheter to introduced the bladder with clear urine return with irrigation. The patient is awakened and returned recovery room good condition. Blood loss is approximately 50 mL. He tolerated the procedure well be discharged home upon recovery.
[2021-04-01 13:29] VITALS: RESP 16; TEMP 97
[2021-04-01 13:42] LABS: Glucose,Whole Blood 124 mg/dL (75-99)
[2021-04-01] MEDS: HYDROmorphone 0.5 MG/0.5 ML SYRINGE IVP PRN ×2 (13:50→14:00)
[2021-04-01] MEDS ORDERED: LACTATED RINGERS 1,000 ML IV ONE (14:09)
[2021-04-01 15:02] VITALS: BP 162/87; PULSE 81
== END 2021-04-01 15:31 | disposition home or self-care (01) ==
LOC: OR 09:21
PROVIDERS: ATTEND Urology
DX: N40.1 Benign prostatic hyperplasia with lower urinary tract symptoms (principal); J45.909 Unspecified asthma, uncomplicated; E11.9 Type 2 diabetes mellitus without complications; K21.9 Gastro-esophageal reflux disease without esophagitis; I10 Essential (primary) hypertension; E78.5 Hyperlipidemia, unspecified; M10.9 Gout, unspecified; M54.9 Dorsalgia, unspecified; Z98.42 Cataract extraction status, left eye; Z98.41 Cataract extraction status, right eye; Z98.890 Other specified postprocedural states; Z83.3 Family history of diabetes mellitus; Z80.9 Family history of malignant neoplasm, unspecified; Z79.82 Long term (current) use of aspirin; Z79.51 Long term (current) use of inhaled steroids; Z79.899 Other long term (current) drug therapy; Z79.84 Long term (current) use of oral hypoglycemic drugs; Z79.1 Long term (current) use of non-steroidal anti-inflammatories (NSAID)
CPT/HCPCS: 88344; 88305; 52601; J2250; J0690; J2405; J2001; J3010; J0330; J2704; J1170

== ENCOUNTER → 2021-10-12 | Outpatient (CLI) | payer MEDICARE, OTHER ==
--- NOTE | 2021-10-12 12:15 | XR ---
EXAMINATION TYPE: XR chest 2V DATE OF EXAM: 10/12/2021 COMPARISON: 12/04/2017 HISTORY: Shortness of breath TECHNIQUE: Frontal and lateral views of the chest are obtained. FINDINGS: Scattered senescent parenchymal changes noted. Hyperinflation compatible with COPD. No evidence for infiltrate. No evidence for atelectasis. Heart size is stable. Mediastinal structures are stable and grossly unremarkable. No evidence for hilar prominence. Degenerative changes dorsal spine. IMPRESSION: 1. No evidence for acute pulmonary disease.
== END | disposition home or self-care (01) ==
LOC: RADXRMAIN 11:58
PROVIDERS: ATTEND Family Medicine
DX: R06.02 Shortness of breath (principal)
CPT/HCPCS: 71046

== ENCOUNTER 2022-07-07 17:28 | Emergency (ER) | payer MEDICARE, OTHER ==
[2022-07-07 17:52] VITALS: BP 139/86; PULSE 78; RESP 20; TEMP 98.3
--- NOTE | 2022-07-07 18:16 | XR ---
EXAMINATION TYPE: XR wrist complete RT DATE OF EXAM: 07/07/2022 COMPARISON: NONE HISTORY: Wrist pain TECHNIQUE: 4 views FINDINGS: Carpal bones are intact. There is some mild spurring at the first carpometacarpal joint. Th ere are no erosions. IMPRESSION: Minor degenerative spurring at the first carpometacarpal joint. No fracture.
--- NOTE | 2022-07-07 18:56 | ED ---
General Adult HPI - General Chief complaint: Extremity Injury, Upper Stated complaint: fall, wrist injury Time Seen by Provider: 07/07/22 18:40 Source: patient Mode of arrival: ambulatory Limitations: no limitations - History of Present Illness Initial comments: Dictation was produced using [employer] dictation software. please excuse any grammatical, word or spelling errors. Chief Complaint: 72-year-old male presents emergency department right wrist pain History of Present Illness: 72-year-old male around lunchtime he tripped and fe ll. He had landed forward with his hand caught between his chest and the ground. Patient states that he did hit his head. Denies any loss of consciousness. The event occurred at around 11 AM this morning. Patient presents to the ER for chief complaint of right wrist pain. Patient states she also scratched his knee and his nail on his right great toe scraped off. He pulled the nail off with some Neosporin and bandage toe. Patient reports that his right wrist as throbbing. Patient states that he kneels feels fine despite there being an anterior abrasion. He is ambulatory without complications. The ROS documented in this emergency department record has been reviewed and confirmed by me. Those systems with pertinent positive or negative responses have been documented in the HPI. All other systems are other negative and/or noncontributory. PHYSICAL EXAM: General Impression: Alert and oriented x3, not in acute distress HEENT: Normocephalic atraumatic, extra-ocular movements intact, pupils equal and reactive to light bilaterally, mucous membranes moist. Cardiovascular: Heart regular rate and rhythm Chest: Able to complete full sentences, no retractions, no tachypnea Right wrist: Mild palpatory tenderness to the ulnar aspect of the right wrist Right foot: Complete nail avulsion of the right great toe without any nail bed laceration Musculoskeletal: Pulses present and equal in all extremities, no peripheral edema Motor: no focal deficits noted Neurological: CN II-XII grossly intact, no focal motor or sensory deficits noted Skin: Right anterior knee abrasion Psych: Normal affect and mood ED course: 72-year-old male presents emergency Department with chief complaint of right wrist pain. Patient had a mechanical fall 7 hours prior to arrival. Patient complaining of wrist strain. Given patient's age CT of the brain was offered and recommended and he refused. Patient had x-rays ordered by triage nurse per HPI protocol. Wrist X-ray unremarkable. Patient does not have any pain to suggest scaphoid injury. Toe nail bed avulsion was bandaged with nonadherent dressing. Patient's tetanus is up-to-date. Patient discharged. Advised follow-up with primary care doctor. - Related Data Home Medications Medication Instructions Recorded Confirmed Aspirin EC [Ecotrin Low Dose] 81 mg PO DAILY 12/04/17 04/01/21 Esomeprazole Magnesium [NexIUM] 40 mg PO DAILY 12/04/17 04/01/21 Pioglitazone [Actos] 45 mg PO DAILY 12/04/17 04/01/21 Tamsulosin HCl [Flomax] 0.4 mg PO BID 12/04/17 04/01/21 allopurinoL [Zyloprim] 100 mg PO BID 12/04/17 04/01/21 Etodolac [Lodine] 400 mg PO DAILY 12/17/19 04/01/21 Fluticasone Propion/Salmeterol 1 inhalation PO BID 12/17/19 04/01/21 [Advair 250-50 Diskus] Ketorolac 0.5% Ophth Soln [Acular] 1 drops LEFT EYE TID 12/17/19 04/01/21 amLODIPine [Norvasc] 20 mg PO DAILY 12/17/19 04/01/21 hydroCHLOROthiazide [Hydrodiuril] 25 mg PO DAILY 12/17/19 04/01/21 prednisoLONE ACETATE 1% OPHTH 1 drops LEFT EYE TID 12/17/19 04/01/21 [Pred Forte 1%] Canagliflozin/Metformin HCl 1 each PO BID 03/30/21 04/01/21 [Invokamet 150-500 mg Tablet] Cyclobenzaprine [Flexeril] 10 mg PO DAILY 03/30/21 04/01/21 Loratadine [Claritin] 10 mg PO HS 03/30/21 04/01/21 Rosuvastatin [Crestor] 10 mg PO DAILY 03/30/21 04/01/21 Allergies Allergy/AdvReac Type Severity Reaction Status Date / Time No Known Allergies Allergy Verified 07/07/22 17:52 Review of Systems ROS Statement: Those systems with pertinent positive or pertinent negative responses have been documented in the HPI. ROS Other: All systems not noted in ROS Statement are negative. Past Medical History Past Medical History: Asthma, Diabetes Mellitus, GERD/Reflux, Hypertension, Prostate Disorder Additional Past Medical History / Comment(s): GOUT, BACK PAIN History of Any Multi-Drug Resistant Organisms: None Reported Past Surgical History: Heart Catheterization, Hernia Repair, Orthopedic Surgery Additional Past Surgical History / Comment(s): RT ROTATOR CUFF REPAIR. LT KNEE SCOPE X 2. RT ELBOW SX. BILAT CATARACT SX. LT RETINAL REPAIR-multiple surgeries to repair Past Anesthesia/Blood Transfusion Reactions: No Reported Reaction Past Psychological History: No Psychological Hx Reported Smoking Status: Never smoker Past Alcohol Use History: None Reported Past Drug Use History: None Reported - Past Family History Mother Family Medical History: Diabetes Mellitus Father Family Medical History: Cancer General Exam Limitations: no limitations Course Vital Signs 07/07/22 17:50 Temperature 98.3 F Pulse Rate 78 Respiratory 20 Rate Blood Pressure 139/86 O2 Sat by Pulse 97 Oximetry Disposition Clinical Impression: Wrist strain Disposition: HOME SELF-CARE Condition: Good Instructions (If sedation given, give patient instructions): Wrist Injury (ED) Is patient prescribed a controlled substance at d/c from ED?: No Referrals: Marielena Bruce MD [Primary Care Provider] - 1-2 days Time of Disposition: 18:56
== END 2022-07-07 19:02 | disposition home or self-care (01) ==
LOC: EC 17:28
DX: S66.911A Strain of unspecified muscle, fascia and tendon at wrist and hand level, right hand, initial encounter (principal); E11.9 Type 2 diabetes mellitus without complications; J45.909 Unspecified asthma, uncomplicated; I10 Essential (primary) hypertension; W01.0XXA Fall on same level from slipping, tripping and stumbling without subsequent striking against object, initial encounter
CPT/HCPCS: 99283

== ENCOUNTER → 2024-03-09 | Outpatient (CLI) | payer MEDICARE, OTHER ==
[2024-03-09 19:37] LABS: ALT 25 U/L (10-49); AST 26 U/L (14-35); Albumin 4.5 g/dL (3.8-4.9); Albumin/Globulin Ratio 1.88 Ratio (1.60-3.17); Alkaline Phosphatase 76 U/L (41-126); BUN/Creat Ratio 14.18 Ratio (12.00-20.00); Blood Urea Nitrogen 15.6 mg/dL (9.0-27.0); Calcium 9.8 mg/dL (8.7-10.3); Carbon Dioxide 27.1 mmol/L (21.6-31.8); Chloride 102 mmol/L (96-109); Creatine Kinase 109 U/L (35-257); Globulin 2.4 g/dL (1.6-3.3); Glucose 166 mg/dL (70-110); LDH 259 U/L (120-246); Potassium 4.1 mmol/L (3.5-5.5); Sodium 141 mmol/L (135-145); Total Bilirubin 0.5 mg/dL (0.3-1.2); Total Protein 6.9 g/dL (6.2-8.2)
[2024-03-09 20:17] LABS: Basophils # (A) 0.05 X 10*3/uL (0.00-0.10); Eosinophils # (A) 0.14 X 10*3/uL (0.04-0.35); Eosinophils % (A) 2.7 %; HCT 44.4 % (39.6-50.0); HGB 14.8 g/dL (13.0-17.0); Lymphocytes # (A) 1.43 X 10*3/uL (0.90-5.00); MCH 32.5 pg (27.0-32.0); MCHC 33.3 g/dL (32.0-37.0); MCV 97.6 FL (80.0-97.0); Mean Platelet Volume 9.4 FL (9.5-12.2); Monocytes # (A) 0.51 X 10*3/uL (0.20-1.00); NRBC Per 100 WBC 0 X 10*3/uL (0.00-0.01); Neutrophils # (A) 2.94 X 10*3/uL (1.80-7.70); Neutrophils % (A) 57.5 %; Platelet Count 234 X 10*3/uL (140-440); RBC 4.55 X 10*6/uL (4.40-5.60); RDW 13.6 % (11.5-14.5); WBC 5.11 X 10*3/uL (4.50-10.00)
[2024-03-09 20:53] LABS: Erythrocyte Sedimentation Rate 6 mm/Hr (0-20)
== END | disposition home or self-care (01) ==
LOC: LABWHC1 12:21
PROVIDERS: ATTEND Nurse Practitioner Family
DX: L30.9 Dermatitis, unspecified (principal)
CPT/HCPCS: 36415; 80053; 82550; 83615; 85025; 85652; 86038; 86160

== ENCOUNTER → 2024-08-10 | Outpatient (CLI) | payer MEDICARE, OTHER ==
--- NOTE | 2024-08-11 08:05 | US ---
EXAMINATION TYPE: US arterial LE multi level DATE OF EXAM: 08/10/2024 10:15 AM CLINICAL INDICATION: Male, 74 years old with history of I25.10 ATHSCL HEART DISEASE OF [place] CORONAR Y ART; History of: Smoker: N Hypertension: Y Diabetic: Y Hyperlipidemia: Y TIA/CVA: N Previous Vascular Surgery: N CAD: N HI: N Vascular Ulcers: N Claudication: N Gangrene: N Doppler Waveforms: Right: Biphasic Left: Biphasic Distal digits of the left dorsalis pedis have monophasic waveforms. Right Brachial Pressure: 153 Left Brachial Pressure: 152 Ankle-Brachial Indices: Right: 1.16 Left: 1.22 (Vessel hardening > 1.4; Normal 0.9 - 1.4, Moderate 0.7 - 0.9, Severe 0.5-0.7) Toe Brachial Indices: Right: 0.45 Left: 0.42 IMPRESSION: 1. Severe stenosis distal digital arteries. 2. 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, 08/11/2024 8:03 AM
== END | disposition home or self-care (01) ==
LOC: RADUSWWP 09:38
PROVIDERS: ATTEND Family Medicine
DX: I25.10 Atherosclerotic heart disease of native coronary artery without angina pectoris (principal); E11.21 Type 2 diabetes mellitus with diabetic nephropathy; I73.89 Other specified peripheral vascular diseases; I10 Essential (primary) hypertension; E78.5 Hyperlipidemia, unspecified
CPT/HCPCS: 93922; 93923

== ENCOUNTER 2024-09-20 11:21 | Emergency (ER) | payer MEDICARE, OTHER ==
[2024-09-20 11:27] VITALS: TEMP 97.4
[2024-09-20] MEDS: MORPHINE SULFATE 4 MG/ML SYRINGE IVP STA (12:02)
[2024-09-20] MEDS: SODIUM CHLORIDE 0.9% 1,000 ML IV STA (12:02)
[2024-09-20] MEDS: KETOROLAC 15 MG/ML 1 ML VIAL IVP STA (12:03)
[2024-09-20] MEDS: LIDOCAINE 4% PATCH TOPICAL ONE (12:04)
[2024-09-20] MEDS: ORPHENADRINE 30 MG/ML 2 ML VIAL IVP STA (12:05)
[2024-09-20 12:09] LABS: Basophils # (A) 0.1 k/uL (0-0.2); Basophils % (A) 1 %; Eosinophils # (A) 0.1 k/uL (0-0.7); Eosinophils % (A) 2 %; HCT 44.3 % (39.0-53.0); HGB 14.6 gm/dL (13.0-17.5); Lymphocytes # (A) 1.4 k/uL (1.0-4.8); Lymphocytes % (A) 17 %; MCH 31.8 pg (25.0-35.0); MCHC 32.9 g/dL (31.0-37.0); MCV 96.6 fL (80.0-100.0); Monocytes # (A) 0.6 k/uL (0-1.0); Monocytes % (A) 7 %; Neutrophils % (A) 73 %; Platelet Count 230 k/uL (150-450); RBC 4.59 m/uL (4.30-5.90); RDW 13.6 % (11.5-15.5); WBC 8.3 k/uL (3.8-10.6)
--- NOTE | 2024-09-20 12:12 | ED ---
Back Pain HPI - General Chief Complaint: Back Pain/Injury Stated Complaint: Back Pain Time Seen by Provider: 09/20/24 11:29 Source: patient, RN notes reviewed Mode of arrival: ambulatory Limitations: no limitations - History of Present Illness Initial Comments: This is a 74-year-old male who presents to the emergency department for back pain. He used to have problems with chronic back pain and received injections at [facility]. However, he was told that in July the disks in his back had collapsed on each other and there was no space to inject the medication. Over the last month in particular the pain has gotten much worse. He saw his PCP 10 days ago and was advised that this is likely musculoskeletal. He was given prescriptions for Robaxin and Ultram which have not been effective. Pain continues to be in the right lower back. Denies any radiation down the legs. Denies any loss of bowel/bladder control or saddle anesthesia. Reports a history of kidney stones and is concerned about having another one of those. He had some nausea this morning that has since resolved. Denies any urinary symptoms. MD Complaint: back pain - Related Data Home Medications Medication Instructions Recorded Confirmed Aspirin EC [Ecotrin Low Dose] 81 mg PO DAILY 12/04/17 12/29/23 Esomeprazole Magnesium [NexIUM] 40 mg PO QAM 12/04/17 01/02/24 Pioglitazone [Actos] 45 mg PO QAM 12/04/17 01/02/24 Tamsulosin HCl [Flomax] 0.4 mg PO BID 12/04/17 01/02/24 allopurinoL [Zyloprim] 100 mg PO BID 12/04/17 01/02/24 Etodolac [Lodine] 400 mg PO BID PRN 12/17/19 12/29/23 Fluticasone Propion/Salmeterol 1 inhalation PO BID 12/17/19 01/02/24 [Advair 250-50 Diskus] Ketorolac 0.5% Ophth Soln [Acular] 1 drops LEFT EYE BID 12/17/19 01/02/24 amLODIPine [Norvasc] 5 mg PO QAM 12/17/19 01/02/24 hydroCHLOROthiazide [Hydrodiuril] 25 mg PO QAM 12/17/19 01/02/24 prednisoLONE ACETATE 1% OPHTH 1 drops LEFT EYE BID 12/17/19 01/02/24 [Pred Forte 1%] Cyclobenzaprine [Flexeril] 10 mg PO DAILY PRN 03/30/21 01/02/24 Loratadine [Claritin] 10 mg PO QAM 03/30/21 01/02/24 Rosuvastatin [Crestor] 10 mg PO QAM 03/30/21 01/02/24 Albuterol Inhaler [Ventolin Hfa 1 - 2 puff INHALATION Q6H PRN 12/29/23 01/02/24 Inhaler] Repaglinide [Prandin] 0.5 mg PO AC-BID 12/29/23 01/02/24 Previous Rx's Medication Instructions Recorded oxyCODONE HCL [OxyIR] 5 mg PO Q6H PRN 3 Days #6 tab 01/02/24 Cyclobenzaprine [Flexeril] 10 mg PO TID PRN #30 tab 09/20/24 HYDROcodone/APAP 5-325MG [[place] 1 tab PO Q6HR PRN 3 Days #12 tab 09/20/24 5-325] Lidocaine 5% Patch [Lidoderm 5% 1 patch TOPICAL DAILY PRN #30 patch 09/20/24 Patch] predniSONE 50 mg PO DAILY 5 Days #5 tab 09/20/24 Allergies Allergy/AdvReac Type Severity Reaction Status Date / Time No Known Allergies Allergy Verified 09/20/24 11:22 Review of Systems ROS Statement: Those systems with pertinent positive or pertinent negative responses have been documented in the HPI. ROS Other: All systems not noted in ROS Statement are negative. Past Medical History Past Medical History: Asthma, Diabetes Mellitus, GERD/Reflux, Hyperlipidemia, Hypertension, Prostate Disorder Additional Past Medical History / Comment(s): GOUT, BACK PAIN, BPH History of Any Multi-Drug Resistant Organisms: None Reported Past Surgical History: Heart Catheterization, Hernia Repair, Orthopedic Surgery Additional Past Surgical History / Comment(s): RT ROTATOR CUFF REPAIR, BILAT. INGUINAL HERNIA REPIR, TURP 2020. LT KNEE SCOPE X 2. LT ELBOW SX. BILAT CATARACT SX. LT RETINAL REPAIR-multiple surgeries to repair Past Anesthesia/Blood Transfusion Reactions: No Reported Reaction Past Psychological History: No Psychological Hx Reported Smoking Status: Never smoker - Past Family History Mother Family Medical History: Diabetes Mellitus Father Family Medical History: Cancer General Exam Limitations: no limitations General appearance: alert, in no apparent distress Head exam: Present: atraumatic, normocephalic, normal inspection Respiratory exam: Present: normal lung sounds bilaterally. Absent: respiratory distress, wheezes, rales, rhonchi, stridor Cardiovascular Exam: Present: regular rate, normal rhythm, normal heart sounds. Absent: systolic murmur, diastolic murmur, rubs, gallop, clicks GI/Abdominal exam: Present: soft, normal bowel sounds. Absent: distended, tenderness, guarding, rebound, rigid Back exam: Present: other (Tenderness over the right lower back) Neurological exam: Present: alert, oriented X3, CN II-XII intact Psychiatric exam: Present: normal affect, normal mood Skin exam: Present: warm, dry, intact, normal color. Absent: rash Course Vital Signs 09/20/24 09/20/24 11:23 15:00 Temperature 97.4 F L Pulse Rate 93 78 Respiratory 18 16 Rate Blood Pressure 159/83 161/76 O2 Sat by Pulse 97 98 Oximetry Medical Decision Making - Medical Decision Making This is a 74-year-old male who presents to the emergency department for back pain. Was pt. sent in by a medical professional or institution? @ -No Did you speak to anyone other than the patient for history? @ -No Did you review nursing and triage notes? @ -Yes, and I agree, it is accurate with regards to the patient's symptoms. Were old charts reviewed? @ -No Differential Diagnosis? @ -Differential Back Pain: Strain, zoster, cauda equina syndrome, epidural abscess, vertebral oste omyelitis, discitis, fracture, subluxation, disc herniation, DJD, spinal stenosis, dissection, AAA, pancreatitis, peptic ulcer disease, pyelonephritis, kidney stone, this is not meant to be an all-inclusive list. EKG interpreted by me (3pts min.)? @ -Not obtained X-rays interpreted by me (1pt min.)? @ -Not obtained CT interpreted by me (1pt min.)? @ -CT scan of the abdomen and pelvis obtained. My interpretation identifies no evidence of a ureteral calculus. U/S interpreted by me (1pt. min.)? @ -Not obtained What testing was considered but not performed? (CT, X-rays, U/S, labs)? Why? @ -None What meds were considered but not given? Why? @ -None Did you discuss the management of the patient with other professionals? @ -No Did you reconcile home meds? @ -No Was smoking cessation discussed for >3mins.? @ -No Was critical care preformed (if so, how long)? @ -No Were there social determinants of health that impacted care today? How? (Homelessness, low income, unemployed, alcoholism, drug addiction, transportation, low edu. Level, literacy, decrease access to med. care, long term, rehab)? @ -No Was there de-escalation of care discussed even if they declined? (Discuss DNR or withdrawal of care, Hospice)? @ -No What co-morbidities impacted this encounter? (DM, HTN, Smoking, COPD, CAD, Cancer, CVA, Hep., AIDS, mental health diagnosis, sleep apnea, morbid obesity)? @ -Osteoarthritis Was patient admitted / discharged? @ -Discharged. Lab work unremarkable. CT scan of the abdomen and pelvis reveals no evidence of a ureteral calculus. Degenerative changes are noted in the lumbar spine. Physical exam and presentation most consistent with a musculoskeletal issue. He was unable to provide a urine sample prior to discharge. Pain was managed in the emergency department. Prescription for prednisone, Flexeril, and lidocaine patches provided. Advised to try the Flexeril in place of the Robaxin but avoid taking them together. Also advised he follow back up with [facility] to see if they can offer any other treatment options. Patient discharged home in stable condition. Case discussed with ED attending Dr. Weston. Return precautions reviewed in depth, the patient is instructed to return to the emergency department with any new, worsening, or concerning symptoms. Patient verbalized understanding. Undiagnosed new problem with uncertain prognosis? @ -None Drug Therapy requiring intensive monitoring for toxicity (Heparin, Nitro, Insulin, Cardizem)? @ -None Were any procedures done? @ -None Diagnosis/symptom? @ -Low back pain Acute, or Chronic, or Acute on Chronic? @ -Acute Uncomplicated (without systemic symptoms) or Complicated (systemic symptoms)? @ -Uncomplicated Side effects of treatment? @ -None Exacerbation, Progression, or Severe Exacerbation] @ -Not applicable Poses a threat to life or bodily function? @ -No - Lab Data Result diagrams: 09/20/24 12:01 09/20/24 12:01 Lab Results 09/20/24 09/20/24 Range/Units 12:01 12:01 WBC 8.3 (3.8-10.6) k/uL RBC 4.59 (4.30-5.90) m/uL Hgb 14.6 (13.0-17.5) gm/dL Hct 44.3 (39.0-53.0) % MCV 96.6 (80.0-100.0) fL MCH 31.8 (25.0-35.0) pg MCHC 32.9 (31.0-37.0) g/dL RDW 13.6 (11.5-15.5) % Plt Count 230 (150-450) k/uL MPV 7.0 Neutrophils % 73 % Lymphocytes % 17 % Monocytes % 7 % Eosinophils % 2 % Basophils % 1 % Neutrophils # 6.0 (1.3-7.7) k/uL Lymphocytes # 1.4 (1.0-4.8) k/uL Monocytes # 0.6 (0-1.0) k/uL Eosinophils # 0.1 (0-0.7) k/uL Basophils # 0.1 (0-0.2) k/uL Sodium 135 L (137-145) mmol/L Potassium 3.8 (3.5-5.1) mmol/L Chloride 101 (98-107) mmol/L Carbon Dioxide 27 (22-30) mmol/L Anion Gap 7 mmol/L BUN 24 H (9-20) mg/dL Creatinine 1.06 (0.66-1.25) mg/dL Est GFR (CKD-EPI)AfAm 80 (>60 ml/min/1.73 sqM) Est GFR (CKD-EPI)NonAf 69 (>60 ml/min/1.73 sqM) Glucose 272 H (74-99) mg/dL Calcium 9.0 (8.4-10.2) mg/dL Total Bilirubin 0.6 (0.2-1.3) mg/dL AST 31 (17-59) U/L ALT 26 (4-49) U/L Alkaline Phosphatase 71 (38-126) U/L Total Protein 7.0 (6.3-8.2) g/dL Albumin 4.2 (3.5-5.0) g/dL - Radiology Data Radiology results: report reviewed, image reviewed Disposition Clinical Impression: Low back pain Disposition: HOME SELF-CARE Instructions (If sedation given, give patient instructions): Acute Low Back Pain (ED) Additional Instructions: Return to the emergency department with any new, worsening, or concerning symptoms. Take the prednisone daily for 5 days. Try taking the Flexeril in place of the Robaxin to see if it is more effective. Apply the lidocaine patches daily. Take the [place] sparingly when your pain is the most severe. Follow-up with orthopedics as well to see if they have anything else they can do for your pain. Follow up with your primary care provider in 1-2 days. Prescriptions: Cyclobenzaprine [Flexeril] 10 mg PO TID PRN #30 tab PRN Reason: Pain Lidocaine 5% Patch [Lidoderm 5% Patch] 1 patch TOPICAL DAILY PRN #30 patch PRN Reason: Pain HYDROcodone/APAP 5-325MG [[place] 5-325] 1 tab PO Q6HR PRN 3 Days #12 tab PRN Reason: Pain predniSONE 50 mg PO DAILY 5 Days #5 tab Is patient prescribed a controlled substance at d/c from ED?: Yes When asked, does pt state using other controlled substances?: No If prescribed controlled substance>3 days was MAPS reviewed?: Prescribed <3 Days Referrals: Marielena Bruce MD [Primary Care Provider] - 1-2 days Bonnie York DO [Doctor of Osteopathic Medicine] - 1-2 days Time of Disposition: 14:16
[2024-09-20 12:27] LABS: ALT 26 U/L (4-49); AST 31 U/L (17-59); African American GFR (CKD) 80 (>60 ml/min/1.73 sqM); Albumin 4.2 g/dL (3.5-5.0); Alkaline Phosphatase 71 U/L (38-126); Anion Gap 7 mmol/L; Blood Urea Nitrogen 24 mg/dL (9-20); Carbon Dioxide 27 mmol/L (22-30); Chloride 101 mmol/L (98-107); Glucose 272 mg/dL (74-99); Non-African American GFR(CKD) 69 (>60 ml/min/1.73 sqM); Potassium 3.8 mmol/L (3.5-5.1); Sodium 135 mmol/L (137-145); Total Bilirubin 0.6 mg/dL (0.2-1.3)
--- NOTE | 2024-09-20 12:53 | CT ---
EXAMINATION TYPE: CT abdomen pelvis wo con CT DLP: 1434.4 mGycm, Automated exposure control for dose reduction was used. DATE OF EXAM: 09/20/2024 12:30 PM COMPARISON: CT abdomen pelvis 09/12/2020 CLINICAL INDICATION:Male, 74 years old with history of Right flank and right lower back pain; RT flan k pain RT lower back pain. Hx renal stones TECHNIQUE: Standard CT of the abdomen and pelvis without IV or oral contrast. Lack of IV or oral co ntrast limits evaluation of solid and hollow organ viscera. Coronal and sagittal reformats were perfo rmed. FINDINGS: LOWER CHEST: Bibasilar regions of linear atelectasis. Cardiomegaly. Trace pericardial effusion. Sever e aortic valvular calcifications. Right lower lobe 5.7 mm pulmonary nodule (series 204, image 14). St able peripheral left lower lobe pulmonary nodules. ABDOMEN LIVER: Unremarkable noncontrast appearance. GALLBLADDER AND BILE DUCTS: The gallbladder is surgically absent. No biliary ductal dilatation. PANCREAS: Lipomatous pseudohypertrophy changes. SPLEEN: Unremarkable noncontrast appearance ADRENAL GLANDS: Unremarkable noncontrast appearance. KIDNEYS AND URETERS: No evidence of hydronephrosis or renal calculus. Bilateral perinephric fat stra nding. No definitive ureteral calculus. PELVIS BLADDER: Incompletely distended but grossly unremarkable. REPRODUCTIVE: Unremarkable. ABDOMEN & PELVIS STOMACH AND BOWEL: Stomach and duodenum are unremarkable. Redundant sigmoid colon. No focal bowel wal l thickening or surrounding inflammatory changes. A few scattered colonic diverticula without evidenc e for acute diverticulitis. Mild colonic stool rim. The appendix is within normal limits. No evidence of bowel obstruction. PERITONEUM/RETROPERITONEUM: No evidence of pneumoperitoneum or free fluid. Stable possible left retro peritoneum inferior left kidney left lower quadrant focal fatty lesion with regions of soft tissue st randing. Consider benign. VASCULATURE: Mild atherosclerotic calcifications are present throughout the abdominal aorta and its b ranches. No evidence of aortic aneurysm. Pelvic phleboliths. MUSCULOSKELETAL: No acute osseous abnormalities. Degenerative changes of bilateral SI joints with ant erior bridging. Multilevel degenerative disc disease. LYMPH NODES: No gross evidence for lymphadenopathy. SOFT TISSUE/ABDOMINAL WALL: Postsurgical changes from bilateral inguinal hernia repair with mesh iden tified IMPRESSION: 1. No evidence for obstructive uropathy or acute abdominal process within limitations of a noncontra st exam. 2. Bilateral lower lobe pulmonary nodularity. In a low risk patient no follow-up is recommended. In a high-risk patient consider optional CT chest in 12 months. [facility], , 09/20/2024 12:50 PM
[2024-09-20 15:03] VITALS: BP 161/76; PULSE 78; RESP 16
== END 2024-09-20 15:06 | disposition home or self-care (01) ==
LOC: EC 11:21
DX: M54.50 Low back pain, unspecified (principal); M19.90 Unspecified osteoarthritis, unspecified site
CPT/HCPCS: 36415; 80053; 85025; 74176; 99284; 96374; 96375 ×2; 96361; J2270; J2360; J1885

== ENCOUNTER → 2025-03-21 | Outpatient (CLI) | payer MEDICARE, OTHER ==
[2025-03-22 02:20] LABS: HCT 41.5 % (39.6-50.0); HGB 13.6 g/dL (13.0-17.0); MCH 31.9 pg (27.0-32.0); MCHC 32.8 g/dL (32.0-37.0); MCV 97.2 FL (80.0-97.0); Mean Platelet Volume 9.6 FL (9.5-12.2); NRBC Per 100 WBC 0 X 10*3/uL (0.00-0.01); Platelet Count 215 X 10*3/uL (140-440); RBC 4.27 X 10*6/uL (4.40-5.60); RDW 13.6 % (11.5-14.5); WBC 6.18 X 10*3/uL (4.50-10.00)
[2025-03-22 02:21] LABS: Blood Urea Nitrogen 18.7 mg/dL (9.0-27.0); Carbon Dioxide 26.1 mmol/L (21.6-31.8); Chloride 100 mmol/L (96-109); Potassium 4.1 mmol/L (3.5-5.5); Sodium 138 mmol/L (135-145)
== END | disposition home or self-care (01) ==
LOC: LABPAT 14:32
PROVIDERS: ATTEND Internal Medicine Interventional Cardiology
DX: Z01.812 Encounter for preprocedural laboratory examination (principal); I35.0 Nonrheumatic aortic (valve) stenosis
CPT/HCPCS: 80051; 82565; 84520; 85027

== ENCOUNTER → 2025-05-03 | Outpatient (CLI) | payer MEDICARE, OTHER ==
--- NOTE | 2025-05-03 10:54 | US ---
EXAMINATION TYPE: US vein mapping BILAT DATE OF EXAM: 05/03/2025 10:05 AM COMPARISON: NONE CLINICAL INDICATION: Male, 74 years old with history of I25.10 CAD; , Preop- Cardiac Surgery TECHNIQUE: Grayscale and color Doppler imaging of the lower extremity venous system. SIDE PERFORMED: Bilateral FINDINGS: PATIENT HISTORY: Smoker: Unknown Heart Disease: Yes Previous DVT: Unknown Vascular Surgery: Unknown Discoloration: yes Hypertension: Unknown Diabetes: Unknown Paralysis: Yes Varicosities: No Edema: left ankle DUPLEX FINDINGS: Greater Saphenous: Color flow seen Lesser Saphenous: Color flow seen Measurements in mm: Right Greater Saphenous: Groin: 6.0 x 5.1 mm High Thigh: 5.6 x 5.0 mm Mid Thigh: 3.3 x 3.4 mm Above Knee: 3.5 x 3.0 mm Knee: 4.3 x 3.7 mm Below Knee: 3.6 x 3.2 mm Mid Calf: 2.8 x 2.4 mm At Ankle: 2.3 x 2.0 mm Left Greater Saphenous: Groin: 10.1 x 9.1 mm High Thigh: 6.1 x 5.3 mm Mid Thigh: 5.8 x 5.0 mm Above Knee: 5.6 x 4.8 mm Knee: 3.9 x 3.9 mm Below Knee: 4.4 x 3.7 mm Mid Calf: 2.4 x 1.8 mm At Ankle: 2.2 x 2.0 mm IMPRESSION: 1. No evidence for occlusion. 2. GSV measurements listed above. 3. Performing surgeon to determine viability as conduit. [facility], , 05/03/2025 10:52 AM
--- NOTE | 2025-05-03 14:09 | US ---
EXAMINATION TYPE: Pre-Operative Non-Invasive Evaluation of the hand for Potential Radial Artery Oumou black, Measurements only DATE OF EXAM: 05/03/2025 9:46 AM CLINICAL INDICATION: Male, 74 years old with history of I25.10 CAD; , Preop- Cardiac Surgery TECHNIQUE:Grayscale and color Doppler imaging of the radial artery(s) SIDE PERFORMED: Left FINDINGS: Dominant hand: Right Duplex Findings: Radial Artery: Color flow seen Measurements in mm, transverse view: Left Radial: Proximal: 6.0 x 5.7 mm Mid: 4.3 x 3.4 mm Distal: 3.6 x 3.9 mm IMPRESSION: 1. No evidence for vascular occlusion. 2. Measurements as described above. [facility], , 05/03/2025 2:06 PM
--- NOTE | 2025-05-04 08:58 | CT ---
EXAMINATION TYPE: CT chest wo con DATE OF EXAM: 05/03/2025 10:50 AM COMPARISON: None. CLINICAL INDICATION: Male, 74 years old with history of I25.10 heart disease, pre op open heart TECHNIQUE: Axial images were obtained at 5 mm thick sections. Reconstructed images are reviewed on t [place] computer in the coronal plane. Contrast used: mL of , (none if empty) Oral contrast used: (none if empty) CT DLP: 1099 mGycm, Automated exposure control for dose reduction was used. FINDINGS: Portion of the thyroid visualized is normal. No suspicious lung nodules or focal infiltrates are present. There is a punctate density in the perip brando of the lingula. Series 4 image 39. No enlarged mediastinal or hilar adenopathy is evident. The ascending aorta diameter at the level o f the main pulmonary artery is 3.8 cm. The main pulmonary artery diameter at the bifurcation is 2.7 cm. Mild coronary artery calcifications present. Scattered small wall calcification within the aorta at the arch Limited CT sections are obtained through the upper abdomen. Fatty infiltration of the pancreas is pre sent. Gallbladder surgically absent. IMPRESSION: 1. No acute pulmonary process. Punctate nodule lateral left lung can be followed in one year. [facility], , 05/04/2025 8:56 AM
== END | disposition home or self-care (01) ==
LOC: RADUSWWP 09:21
PROVIDERS: ATTEND Surgery
DX: I25.10 Atherosclerotic heart disease of native coronary artery without angina pectoris (principal); R60.0 Localized edema
CPT/HCPCS: 71250; 93970

== ENCOUNTER → 2025-06-04 | Outpatient (CLI) | payer MEDICARE, OTHER ==
--- NOTE | 2025-06-04 11:43 | P.PN ---
Progress Note - Text Progress Note Date: 06/04/25 5 meter walk test completed on 05/17/25 in the office, patient tolerated without difficulty #1 3.37 sec #2 3.46 sec #3 3.16 sec CFS=4
[2025-06-04 11:53] LABS: INR 1.1 (<1.2); Partial Thromboplastin Time 26.1 sec (22.0-30.0); Prothrombin Time 11.6 sec (10.0-12.5)
[2025-06-04 15:06] LABS: HCT 41.5 % (39.6-50.0); HGB 13.6 g/dL (13.0-17.0); MCH 31.3 pg (27.0-32.0); MCHC 32.8 g/dL (32.0-37.0); MCV 95.4 FL (80.0-97.0); NRBC Per 100 WBC 0 X 10*3/uL (0.00-0.01); Platelet Count 230 X 10*3/uL (140-440); RBC 4.35 X 10*6/uL (4.40-5.60); RDW 13.5 % (11.5-14.5); WBC 4.49 X 10*3/uL (4.50-10.00)
[2025-06-04 15:26] LABS: ALT 22 U/L (10-49); AST 25 U/L (14-35); Albumin 4.2 g/dL (3.8-4.9); Albumin/Globulin Ratio 1.91 Ratio (1.60-3.17); Alkaline Phosphatase 69 U/L (41-126); Anion Gap 10.80 mmol/L (4.00-12.00); BUN/Creat Ratio 15.50 Ratio (12.00-20.00); Bilirubin,Unconjugated 0.18 mg/dL (0.20-1.00); Blood Urea Nitrogen 18.6 mg/dL (9.0-27.0); Calcium 9.1 mg/dL (8.7-10.3); Carbon Dioxide 25.2 mmol/L (21.6-31.8); Chloride 98 mmol/L (96-109); Cholesterol 106.00 mg/dL (0.00-200.00); Globulin 2.2 g/dL (1.6-3.3); Glucose 175 mg/dL (70-110); HDL Cholesterol 47.20 mg/dL (40.00-60.00); LDL Cholesterol,Calculated 41.9 mg/dL (0.0-131.0); Magnesium 1.9 mg/dL (1.5-2.4); Potassium 4.1 mmol/L (3.5-5.5); Sodium 134 mmol/L (135-145); Total Protein 6.4 g/dL (6.2-8.2); Triglycerides 84.30 mg/dL (0.00-149.00); VLDL Calculation 16.86 mg/dL (5.00-40.00)
[2025-06-04 15:51] LABS: Bilirubin,Urine Negative (Negative); Blood,Urine Negative (Negative); Color,Urine Yellow (Yellow); Ketones,Urine Negative (Negative); Nitrite,Urine Negative (Negative); PH, Urine 6.5; Specific Gravity,Urine 1.010 (1.001-1.030); Urobilinogen,Urine 0.2 E.U./DL
== END | disposition home or self-care (01) ==
LOC: LABWHC1 10:53
PROVIDERS: ATTEND Surgery
DX: Z01.818 Encounter for other preprocedural examination (principal); I25.10 Atherosclerotic heart disease of native coronary artery without angina pectoris
CPT/HCPCS: 36415; 80053; 80061; 81003; 82248; 83036; 83735; 84443; 85027; 85610; 85730; 86850; 86900; 86901; 86920; 87070; 87086; 93005